=== PATIENT | male | born 1995 | race Two or more races ===

== ENCOUNTER 2018-03-11 10:05 | Emergency (ER) | payer BC ==
--- NOTE | 2018-03-11 11:00 | EDPHY ---
General Time Seen by Provider: 03/11/18 10:55 Narrative: CHIEF COMPLAINT: Fall, wrist pain HISTORY OF PRESENT ILLNESS: Patient presents with complaints of left wrist pain after fall last night. This happened while long boarding. He says he fell on outward stretched left hand. He denies any head strike or loss of consciousness his only complaint is left wrist pain. Radiates up to the elbow. Worse with palpation and movement. No numbness, tingling weakness. No laceration or puncture. No injury elsewhere. Right-hand dominant. No other associated complaints or modifying factors. DOMINANT EXTREMITY: Right-handed ESTABLISHED ORTHOPEDIST: None REVIEW OF SYSTEMS: Ten systems reviewed and are negative unless otherwise noted in the HPI PAST MEDICAL HISTORY: Uncomplicated PAST SURGICAL HISTORY: No surgical history SOCIAL HISTORY: Nonsmoker. 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 Pupils equal round react. No outward signs of trauma. Cardiovascular: Symmetric radial pulses 2+. Brisk cap refill in the fingers left hand. 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 No petechiae or purpura. No puncture laceration Extremities: Circumferential tenderness of the left wrist with minimal tenderness of the left snuffbox. There is some pain with extension of the left elbow but no tenderness to palpation of the elbow. Range of motion of the upper extremities is symmetric with some pain left wrist. Neurovascular intact distal left wrist pain. Psychiatric: Mood and affect normal DIFFERENTIAL DIAGNOSES: Including but not limited to wrist sprain, restrained, scaphoid fracture, scapholunate dislocation, radial head fracture, elbow sprain MDM: 11:00 a.m. Fall last night on outward stretched hand with left wrist pain and left elbow pain. The x-ray of the wrist was performed for examination, I do feel he warrants an elbow x-ray as well. 11:05 a.m. Case discussed with radiologist Dr. Wallace. There is questionable abnormality of the scaphoid. He does not have exquisite tenderness of the snuffbox but does have mild tenderness. I will treat this as a possible fracture. Elbow x-ray is pending. 11:30 a.m. X-ray of the elbow as read by me, without radiologist, reveals no evidence of radial head fracture. He is able to fully range the elbow without difficulty. I have ordered a Velcro thumb spica to protect the left scaphoid. He will be placed in this with instructions to keep this on at all times except when showering. We discussed mandatory orthopedic follow-up due to the possible scaphoid injury. We discussed ED precautions, ice, elevation anti- inflammatories. He is discharged home stable condition SUPERVISION: This patient was independently evaluated without direct involvement of or examination by the attending physician. ED Precautions: Worsening pain. Erythema, edema, cyanosis, pallor, paresthesia or anesthesia. - Diagnostics Imaging Results: Imaging Impressions Wrist X-Ray 03/11/18 10:38 Impression: A nondisplaced navicular fracture is not excluded. Findings were discussed with Eliazar Ott PA-C at 11:06, on 03/11/2018. Consider conservative management and short-term repeat radiographic follow-up in 7-14 days, as clinically directed. Elbow X-Ray 03/11/18 11:02 Impression: There is no acute osseous abnormality identified. - History Smoking Status: Never smoked - Objective Vital Signs: Initial Vital Signs Temperature (C) 98.1 F 03/11/18 10:17 Heart Rate 64 03/11/18 10:17 Respiratory Rate 16 03/11/18 10:17 Blood Pressure 142/81 H 03/11/18 10:17 O2 Sat (%) 95 03/11/18 10:17 O2 Delivery Mode Room Air Allergies/Adverse Reactions: No Known Allergies Allergy (Unverified 03/11/18 10:20) Home Medications: Medication Instructions Recorded NK [No Known Home Meds] 03/11/18 Departure - Departure Disposition: Home, Routine, Self-Care Clinical Impression: Left wrist sprain Qualifiers: Encounter type: initial encounter Qualified Code(s): S63.502A - Unspecified sprain of left wrist, initial encounter Sprain of elbow, left Qualifiers: Encounter type: initial encounter Qualified Code(s): S53.402A - Unspecified sprain of left elbow, initial encounter Condition: Good Instructions: Scaphoid Fracture (ED), Wrist Sprain (ED) Additional Instructions: 1. Medications as discussed as needed 2. Follow up with Orthopedics for definitive care 3. ED precautions as discussed for worsening pain, redness, fever, changes in range of motion, changes in sensation 4. Keep your left wrist splint in place at all times until seen by Orthopedics for definitive care Referrals: Juan C Mcrae MD [Medical Doctor] - As per Instructions
[2018-03-11 12:10] VITALS: BP 130/80
== END 2018-03-11 12:19 | disposition home or self-care (01) ==
DX: S63.502A Unspecified sprain of left wrist, initial encounter (principal); S53.402A Unspecified sprain of left elbow, initial encounter; V00.131A Fall from skateboard, initial encounter; Y99.8 Other external cause status; Y93.51 Activity, roller skating (inline) and skateboarding
CPT/HCPCS: L3807